=== PATIENT | female | born 1990 | race Hispanic/Latino ===

== ENCOUNTER 2020-02-09 19:45 | Emergency (ER) | payer OTHER ==
[2020-02-09 20:05] VITALS: BP 114/77; TEMP 98; O2SAT 100
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
[2020-02-09] MEDS ORDERED: traMADol HCL 50 MG TAB PO ONE (20:18)
== END 2020-02-09 20:30 | disposition home or self-care (01) ==
LOC: ER 19:45
DX: S16.1XXA Strain of muscle, fascia and tendon at neck level, initial encounter (principal); S29.012A Strain of muscle and tendon of back wall of thorax, initial encounter; V49.49XA Driver injured in collision with other motor vehicles in traffic accident, initial encounter; Y92.410 Unspecified street and highway as the place of occurrence of the external cause